=== PATIENT | female | born 1960 | race Caucasian/White ===

== ENCOUNTER 2018-09-12 09:59 | Inpatient (IN) | payer OTHER ==
[2018-09-12 10:07] VITALS: BMI 30.2
[2018-09-12 11:02] LABS: BASO % 0.3 % (0.0-2.0); EOS # 0.1 K/uL (0.0-0.7); EOS % 1.6 % (0.0-4.0); LYMPH # 1.6 K/uL (1.0-4.3); MEAN CELL VOLUME 87.3 fl (81.0-99.0); MEAN CORPUSCULAR HEMOGLOBIN 28.4 pg (27.0-31.0); MEAN CORPUSCULAR HGB CONC 32.5 g/dL (33.0-37.0); MONO # 0.4 K/uL (0.0-0.8); MONO % 5.1 % (0.0-10.0); NEUT # 5.1 K/uL (1.8-7.0); NRBC % 0.1 % (0.0-0.0); RBC 4.57 Mil/uL (3.80-5.20); RED CELL DISTRIBUTION WIDTH 13.5 % (11.5-14.5); WHITE BLOOD COUNT 7.1 K/uL (4.8-10.8)
[2018-09-12 11:15] LABS: ALB/GLOB RATIO 1.2 (1.0-2.1); ALBUMIN 3.8 g/dL (3.5-5.0); ALT/SGPT 20 U/L (9-52); AST/SGOT 25 U/L (14-36); BLOOD UREA NITROGEN 12 mg/dl (7-17); GFR NON-AFRICAN AMERICAN > 60
--- NOTE | 2018-09-12 11:18 | ED PDOC ---
HPI:STROKE - Time Time: 10:25 - Historian Historian: Patient, Family - Chief Complaint Chief Complaint: Numbness, Arm weakness, Leg weakness, other (Facial Swelling) - Onset Date: 09/11/18 Time: 08:00 Onset: Days (x1 ago) - Timing Timing: Persistent - Location Locate left: Face - Associated Symptoms Associated symptoms:: Numbness (to the left side of face, left arm and left leg), Pain (Neck Pain ) - Notes: Notes:: 57 y/o female with a PMHx of migraines presents to the ED for evaluation of left sided facial swelling associated with numbness to the left upper and lower extremities, onset yesterday morning. Patient reports facial swelling is additionally associated with a headache, dizziness, left sided neck pain and shortness of breath. Patient reports of blurry vision only through the left eye as well as slight photophobia and sensitivity to touch of the left face. Patient states headache is not similar to those of a migraine. Patient is concerned of swelling to the left side of her face, thus prompting today's visit. Patient reports of taking 2 tablets of Tylenol every 6 hours. Patient states her last dose of Tylenol for symptom relief was last night. Otherwise patient denies ear pain. Of note, patient is allergic to aspirin. When asked what happens when she takes aspirin, patient reports she vomits. PMD: None NIHSS Stroke Scale - Date/Time Evaluation Performed Date Performed: 09/12/18 Time Performed: 10:52 When Was NIHSS Performed: 24 hours post onset S/S - How Severe is the Stroke Level of Consciousness: 0=Alert LOC to Questions: 0=Both comments correct LOC to commands: 0=Obeys both correctly Best Gaze: 0=Normal Limb Ataxia: 0=Absent Best Language: 0=No aphasia Dysarthia: 0=Normal articulation Extinction & Inattention (Neglect): 0=Normal, no object rTPA Inclusion/Exclusion - Refusal of Treatment Patient Refused Treatment: No - Inclusion Criteria for Altepase Patient is 18 years or Older: Yes The Clinical Diagnosis of Ischemic Stroke That is Causing a Potentially Disabling Neurological Deficit: No Time of Onset is Well Established to be Less Than 270 Minute Before Treatment Would Begin: No Risk/Benefit Discussed With Patient/Family Member Present: Yes Past Medical History Reviewed: Historical Data, Nursing Documentation, Vital Signs Vital Signs: Last Vital Signs Temp 97.6 F 09/12/18 10:05 Pulse 75 09/12/18 10:05 Resp BP 132/80 09/12/18 10:05 Pulse Ox 97 09/12/18 10:05 - Medical History PMH: Migraine - Surgical History Surgical History: No Surg Hx - Family History Family History: States: Unknown Family Hx - Home Medications Home Medications: Ambulatory Orders Medication Instructions Recorded Amoxicillin/Clavulanate Pota 1 tab PO BID #14 tab 03/09/15 [Augmentin 875 mg-125 mg] Ciprofloxacin/Dexamethasone 4 drop OT BID #1 bottle 03/09/15 [Ciprodex 0.3%-0.1% 7.5 Ml] Oseltamivir Cap [Tamiflu] 75 mg PO BID #10 cap 11/11/16 - Allergies Allergies/Adverse Reactions: Allergies Allergy/AdvReac Type Severity Reaction Status Date / Time aspirin Allergy RASH Verified 11/11/16 09:53 Review of Systems ROS Statement: Except As Marked, All Systems Reviewed And Found Negative Constitutional: Positive for: Other (swelling to the left side of face). Negative for: Fever Eyes: Positive for: Pain, Vision Change (blurred vision to the left eye) Respiratory: Positive for: Shortness of Breath Musculoskeletal: Positive for: Neck Pain Neurological: Positive for: Numbness (to the left upper and lower extremities), Headache, Dizziness, Other (Photophobia and sensitivity to touch) Physical Exam - Reviewed Nursing Documentation Reviewed: Yes Vital Signs Reviewed: Yes - Physical Exam Appears: Positive for: Uncomfortable Head Exam: Positive for: ATRAUMATIC, NORMAL INSPECTION, NORMOCEPHALIC Skin: Positive for: Normal Color, Warm, Dry Eye Exam: Positive for: Normal appearance, EOMI, PERRL ENT: Positive for: Normal ENT Inspection Neck: Positive for: Supple, Pain On Movement Of Neck Cardiovascular/Chest: Positive for: Regular Rate, Rhythm. Negative for: Murmur Respiratory: Positive for: Normal Breath Sounds. Negative for: Respiratory Distress Gastrointestinal/Abdominal: Positive for: Normal Exam, Soft. Negative for: Tenderness Back: Positive for: Normal Inspection. Negative for: L CVA Tenderness, R CVA Tenderness, Vertebral Tenderness Extremity: Positive for: Normal ROM, Other (Strength: Left Side-4/5, Right Side- 5/5). Negative for: Pedal Edema, Deformity, Swelling Neurologic/Psych: Positive for: Alert, blogs manager II-XII (intact), Oriented (x3), Facial Droop (slight left sided). Negative for: Aphasia - Laboratory Results Result Diagrams: 09/12/18 10:50 09/12/18 10:50 - ECG O2 Sat by Pulse Oximetry: 97 (RA) Pulse Ox Interpretation: Normal Medical Decision Making Medical Decision Making: Time: 10:41 Plan: -CT Head w/o Contrast -EKG -CMP -Magnesium Stat -Phosphorous Stat -ED Urine Dipstick -CBC w differential - Erythrocyte sedimentation rate -Glucose POC -Tylenol 650mg PO -IV Fluid Time: 1127 CT HEAD RESULTS FINDINGS: HEMORRHAGE: No intracranial hemorrhage. BRAIN: Normal mejía-white matter differentiation and density are appreciated throughout the cerebrum and cerebellum with the brainstem appearing unremarkable as well. There is no mass effect. There is no suspicious extra-axial fluid collection and the midline brain anatomy appears diffusely unremarkable. VENTRICLES: Unremarkable. No hydrocephalus. CALVARIUM: Unremarkable. PARANASAL SINUSES: Unremarkable as visualized. No significant inflammatory changes. MASTOID AIR CELLS: Unremarkable as visualized. No inflammatory changes. OTHER FINDINGS: None. IMPRESSION: Unremarkable noncontrast head CT. No significant interval change compared to prior head CT 03/09/2015. Scribe Attestation: Documented by Katia Feliz, acting as a scribe for Dr. Haylie Jorge Provider Scribe Attestation: All medical record entries made by the Scribe were at my direction and personally dictated by me. I have reviewed the chart and agree that the record accurately reflects my personal performance of the history, physical exam, medical decision making, and the department course for this patient. I have also personally directed, reviewed, and agree with the discharge instructions and disposition. Disposition - Clinical Impression Clinical Impression: Left-sided weakness - Patient ED Disposition Is Patient to be Admitted: Yes Doctor Will See Patient In The: Hospital - Disposition Disposition: Transfer of Care Disposition Time: 13:30 Condition: FAIR Forms: Method (Niuean) - Pt Status Changed To: Hospital Disposition Of: Inpatient - Admit Certification Admit to Inpatient:: After my assessment, the patient will require hospitalization for at least two midnights. This is because of the severity of symptoms shown, intensity of services needed, and/or the medical risk in this patient being treated as an outpatient. - POA Present On Arrival: None
--- NOTE | 2018-09-12 11:31 | CT ---
Date of service: 09/12/2018 PROCEDURE: CT HEAD WITHOUT CONTRAST. HISTORY: HOPPER w/ left sided weakness since yesterday morn COMPARISON: Noncontrast head CT 03/09/2015. TECHNIQUE: Axial computed tomography images were obtained through the head/brain without intravenous contrast. Radiation dose: Total exam DLP = 784.86 mGy-cm. This CT exam was performed using one or more of the following dose reduction techniques: Automated exposure control, adjustment of the mA and/or kV according to patient size, and/or use of iterative reconstruction technique. FINDINGS: HEMORRHAGE: No intracranial hemorrhage. BRAIN: Normal mejía-white matter differentiation and density are appreciated throughout the cerebrum and cerebellum with the brainstem appearing unremarkable as well. There is no mass effect. There is no suspicious extra-axial fluid collection and the midline brain anatomy appears diffusely unremarkable. VENTRICLES: Unremarkable. No hydrocephalus. CALVARIUM: Unremarkable. PARANASAL SINUSES: Unremarkable as visualized. No significant inflammatory changes. MASTOID AIR CELLS: Unremarkable as visualized. No inflammatory changes. OTHER FINDINGS: None. IMPRESSION: Unremarkable noncontrast head CT. No significant interval change compared to prior head CT 03/09/2015.
[2018-09-12] MEDS ORDERED: Pantoprazole 40 mg EC Tab PO SCH (14:30)
--- NOTE | 2018-09-12 15:06 | CP.PCM.HP ---
History of Present Illness - History of Present Illness History of Present Illness: 57 y/o F with a PMHx of Migraine and Rheumatoid Arthritis presented to ED c/o left orbital swelling, L sided facial numbness and tingling, and L body weakness that began yesterday morning and aggravated dramatically this morning after waking up. As per pt, left lower eyelid swelling was predominant this morning, was painful, progressively decreased in size, and associated with L eye blurry vision that resolved already. Pt also explains that she had constant bilateral headache that began on Thursday, is described as burning, diffuse, 8/10 predominantly, non-radiating to neck and partially alleviated by OTC Tylenol (2tabs every 6-8hrs, last dose last night). -Family, daugther and daughter in law, at bedside reports that they noticed pt was acting cautiously since Thursday afternoon when she was complaining of headache and was walking by supporting her hands on the jolly. -Pt denies fever, chills, recent trauma, hearing deficits, chest pain, SOB, dysarthria, LOC, seizures, abdominal pain, N/V/D or rash. PMD: None Allergies: Aspirin, gastric upset, nausea, vomiting and epigastric severe pain. Ibuprofen gives same symptoms but at lesser intense. Meds: OTC Tylenol only -PMHx: Rheumatoid arthritis (not treated, as per patient), Migraines (non-severe as per pt) -PSHx: L breast unspecified mass excision, BTL. -FHx: NC -SHx: Denies alcohol, tobacco or rec drugs. At ED: -->CBC, CMP, ESR, Magnessium and Phosphorus were unremarkable -->CT Head: unremarkable -->PO Tylenol given, pt reported improvement. Present on Admission - Present on Admission Any Indicators Present on Admission: No Review of Systems - Constitutional Constitutional: absent: Chills, Fever, Frequent Falls, Night Sweats - EENT Eyes: Blurred Vision. absent: Discharge, Loss of Vision Ears: absent: Decreased Hearing, Ear Discharge, Ear Pain Nose/Mouth/Throat: absent: Nasal Congestion, Nasal Discharge, Hoarsness, Odynophagia, Sore Throat, Neck Pain - Cardiovascular Cardiovascular: absent: Chest Pain, Leg Edema, Palpitations, Rapid Heart Rate - Respiratory Respiratory: absent: Cough, Dyspnea, Hemoptysis - Gastrointestinal Gastrointestinal: absent: Abdominal Pain, Diarrhea, Nausea, Vomiting - Genitourinary Genitourinary: absent: Difficulty Urinating, Dysuria, Flank Pain, Hematuria, Urinary Frequency - Neurological Neurological: Numbness (L face), Focal Weakness (L side of body, mild). absent: Confusion, Frequent Falls, Restless Legs - Psychiatric Psychiatric: absent: Anhedonia, Anxiety, Auditory Hallucinations Past Patient History - Past Social History Smoking Status: Never Smoked - NEUROLOGICAL Hx Migraine: Yes - PSYCHIATRIC Hx Substance Use: No - SURGICAL HISTORY Other/Comment: removal of cyst lt breast - ANESTHESIA Hx Anesthesia: Yes Hx Anesthesia Reactions: No Meds Allergies/Adverse Reactions: Allergies Allergy/AdvReac Type Severity Reaction Status Date / Time aspirin Allergy RASH Verified 11/11/16 09:53 Physical Exam - Constitutional Appears: No Acute Distress - Head Exam Head Exam: ATRAUMATIC, NORMAL INSPECTION - Eye Exam Eye Exam: EOMI, PERRL - ENT Exam ENT Exam: Mucous Membranes Moist - Neck Exam Neck exam: Positive for: Full Rom, Normal Inspection. Negative for: Meningismus - Respiratory Exam Respiratory Exam: NORMAL BREATHING PATTERN. absent: Rales, Rhonchi, Wheezes, Respiratory Distress - Cardiovascular Exam Cardiovascular Exam: REGULAR RHYTHM, +S1, +S2 - GI/Abdominal Exam GI & Abdominal Exam: Soft. absent: Distended, Firm, Guarding, Organomegaly, Tenderness - Extremities Exam Extremities exam: Positive for: normal inspection. Negative for: calf tenderness, pedal edema - Neurological Exam Neurological exam: Alert, Oriented x3 - Expanded Neurological Exam Expanded Patient oriented to: person, place, time Speech: Fluid Speech Cranial nerves: EOM's Intact: Normal, Facial Palsey w/Forehead Movement: Abnormal Left (mild L facial palsy), Facial Sensation: Normal, Gag Reflex: Normal, Nystagmus: Normal, Tongue Deviation: Normal Ataxia: Yes (mild on finger-nose test) Cerebellar Function: Finger to Nose: Abnormal Left (mild and slow), Heel to Lopez: Abnormal Left Neuro motor strength exam: Left Upper Extremity: 4, Right Upper Extremity: 5, Left Lower Extremity: 4, Right Lower Extremity: 5 Coma Scale Eye Opening: SPONTANEOUS Coma Scale Motor Response: OBEYS COMMANDS Coma Scale Verbal: Oriented Coma Scale Total: 15 - Psychiatric Exam Psychiatric exam: Normal Mood - Additional Findings Additional findings: Sensation to light touch decreased on L side of body when compared to R side. Results - Vital Signs Recent Vital Signs: Last Vital Signs Temp 97.9 F 09/12/18 14:24 Pulse 55 L 09/12/18 14:24 Resp 18 09/12/18 14:24 BP 134/70 09/12/18 14:24 Pulse Ox 99 09/12/18 14:24 - Labs Result Diagrams: 09/12/18 10:50 09/12/18 10:50 Labs: Laboratory Results - last 24 hr 09/12/18 09/12/18 09/12/18 10:50 10:50 11:01 WBC 7.1 RBC 4.57 Hgb 13.0 Hct 39.9 MCV 87.3 MCH 28.4 MCHC 32.5 L RDW 13.5 Plt Count 256 MPV 9.0 Neut % (Auto) 71.0 Lymph % (Auto) 22.0 Cameron % (Auto) 5.1 Eos % (Auto) 1.6 Baso % (Auto) 0.3 Neut # (Auto) 5.1 Lymph # (Auto) 1.6 Cameron # (Auto) 0.4 Eos # (Auto) 0.1 Baso # (Auto) 0.0 ESR 25 Sodium 142 Potassium 3.8 Chloride 106 Carbon Dioxide 28 Anion Gap 12 BUN 12 Creatinine 0.6 L Est GFR ( Amer) > 60 Est GFR (Non-Af Amer) > 60 POC Glucose (mg/dL) 98 Random Glucose 87 Calcium 9.0 Phosphorus 2.9 Magnesium 1.9 Total Bilirubin 0.3 AST 25 ALT 20 Alkaline Phosphatase 71 Total Protein 7.1 Albumin 3.8 Globulin 3.3 Albumin/Globulin Ratio 1.2 Assessment & Plan - Assessment and Plan (Free Text) Assessment: 57 y/o F with a PMHx of RA and migraines admitted for evaluation and management of L sided face and body weakness, suspicion for acute CVA. --Head CT: unremarkable. PLAN: >Left sided face and body weakness --Stable. Need to rule out acute CVA. --Neurology consult, Dr Berman --MRI Brain ordered --US Dopler of b/l carotids ordered. --CBC, CMP, TSH, lipid panel and HbA1c ordered. --Nurse swallow screen --Neuro checks Q2H, continuous monitoring coordinator --Due to allergy to Aspirin, Plavis PO daily initiated --Lipitor 10mg PO initiated --Heart Healthy diet. >Headache/Migraine --Hx of migraine. --PO Acetaminophen 325mg PRN for mild pain (1-3) --PO Acetaminophen 650mg PRN for moderate pain (4-7) --Notify MD if severe pain/headache >Prophylaxis --Lovenox 40mg SC daily Case discussed with Dr Lambert, Hospitalist prescriptionist. GTolentino
--- NOTE | 2018-09-12 16:37 | US ---
Date of service: 09/12/2018 PROCEDURE: Duplex ultrasound of the carotid and vertebral arteries. HISTORY: left facial weakness/numbness COMPARISON: None available. TECHNIQUE: Grayscale and duplex Doppler evaluation of the cervical carotid and vertebral arteries were performed. The common carotid, carotid bifurcations and cervical ICA and proximal ECA were evaluated. The vertebral arteries were evaluated for gross patency and direction. FINDINGS: RIGHT CAROTID ARTERIES: Common Carotid Artery: Normal. Maximal flow velocity of 72.4 cm/s. Carotid Bifurcation: Normal. Internal Carotid Artery:Normal. Maximal flow velocity of 80.6 cm/s. External Carotid Artery (proximal branches): Normal. Maximal flow velocity of 55.9 cm/s. ICA/CCA Ratio: 1.1 LEFT CAROTID ARTERIES: Common Carotid Artery: Normal. Maximal flow velocity of 57.5 cm/s. Carotid Bifurcation: Normal. Internal Carotid Artery:Normal. Maximal flow velocity of 84.3 cm/s. External Carotid Artery (proximal branches): Normal. Maximal flow velocity of 75.7 cm/s. ICA/CCA Ratio: 1.5 VERTEBRAL ARTERIES: Right Vertebral Artery: Patent. Antegrade flow. Left Vertebral Artery: Patent. Antegrade flow. OTHER FINDINGS: No atherosclerotic calcification present IMPRESSION: Normal Duplex Doppler of the cervical carotid and vertebral arteries.
[2018-09-12] MEDS ORDERED: Artificial Tears Opht Soln OU PRN (23:58)
[2018-09-13 05:49] LABS: BASO # 0.1 K/uL (0.0-0.2); BASO % 0.7 % (0.0-2.0); EOS # 0.2 K/uL (0.0-0.7); EOS % 2.3 % (0.0-4.0); HEMOGLOBIN 13.3 g/dL (12.0-16.0); LYMPH # 2.6 K/uL (1.0-4.3); LYMPH % 33.7 % (20.0-40.0); MEAN CELL VOLUME 85.4 fl (81.0-99.0); MEAN CORPUSCULAR HEMOGLOBIN 28.2 pg (27.0-31.0); MEAN CORPUSCULAR HGB CONC 33.1 g/dL (33.0-37.0); MONO # 0.4 K/uL (0.0-0.8); MONO % 5.6 % (0.0-10.0); NEUT # 4.5 K/uL (1.8-7.0); NEUT % 57.7 % (50.0-75.0); RBC 4.72 Mil/uL (3.80-5.20); RED CELL DISTRIBUTION WIDTH 13.9 % (11.5-14.5); WHITE BLOOD COUNT 7.9 K/uL (4.8-10.8)
[2018-09-13 05:54] LABS: BLOOD UREA NITROGEN 12 mg/dl (7-17); CALCIUM 8.7 mg/dL (8.4-10.2); GFR NON-AFRICAN AMERICAN > 60; HDL CHOLESTEROL 42 MG/DL (30-70)
[2018-09-13 06:04] LABS: LDL CHOLESTEROL 132 mg/dL (0-129)
[2018-09-13] MEDS ORDERED: Pantoprazole 40 mg EC Tab PO SCH (09:00)
[2018-09-13] MEDS ORDERED: Enoxaparin 40 mg Syringe SC SCH ×2 (09:00)
--- NOTE | 2018-09-13 11:24 | MRI ---
Date of service: 09/13/2018 PROCEDURE: MRI BRAIN WITHOUT CONTRAST HISTORY: left sided weakness COMPARISON: Noncontrast head CT from 09/12/2018. TECHNIQUE: Multiplanar, multisequence MR images of the brain were obtained without intravenous contrast enhancement. FINDINGS: HEMORRHAGE: None DWI: No evidence of an acute or early subacute infarction. BRAIN PARENCHYMA: There are scattered T2/FLAIR hyperintense lesions in the subcortical and periventricular white matter. There is no mass, mass effect or abnormal extra-axial fluid collection. The midline sagittal structures are normal VENTRICLES: There is mild global parenchymal volume loss and proportionate enlargement of the ventricles and cortical sulci. CRANIUM: There is normal bone marrow signal pattern. ORBITS: Grossly unremarkable. PARANASAL SINUSES/MASTOIDS: Clear VASCULAR SYSTEM: There are normal signal voids in the larger intracranial arteries. OTHER FINDINGS: None. IMPRESSION: No acute intracranial abnormality. Scattered subcortical and periventricular white matter lesions are strictly nonspecific. The differential considerations include migraine headache effect, gliosis, Lyme disease, vasculitis, early chronic microangiopathic changes and demyelinating disease including multiple sclerosis. Clinical follow-up is advised. Mild global parenchymal volume loss.
--- NOTE | 2018-09-13 13:24 | CP.PCM.PN ---
Subjective - Date & Time of Evaluation Date of Evaluation: 09/13/18 Time of Evaluation: 11:40 - Subjective Subjective: 57 y/o seen at bedside. States she has been having again headaches and left periorbital pain. Afebrile. Denies CP, SOB, vomiting, dizziness or nausea. Still c/o diffuse generalized weakness but improved overnight. Objective - Vital Signs/Intake and Output Vital Signs (last 24 hours): Temp Pulse Resp BP Pulse Ox 98.2 F 59 L 18 112/69 97 09/13/18 11:48 09/13/18 11:48 09/13/18 11:48 09/13/18 11:48 09/13/18 11:48 - Medications Medications: Current Medications Acetaminophen (Tylenol 325mg Tab) 650 mg PO Q6 PRN PRN Reason: Pain, moderate (4-7) Last Admin: 09/13/18 10:13 Dose: 650 mg Acetaminophen (Tylenol 325mg Tab) 325 mg PO Q6 PRN PRN Reason: Pain, Mild (1-3) Artificial Tears (Artificial Tears) 2 drop OU Q6 PRN PRN Reason: Dry eyes Last Admin: 09/13/18 00:28 Dose: 2 drop Atorvastatin Calcium (Lipitor) 10 mg PO HS [facility] Last Admin: 09/12/18 21:00 Dose: 10 mg Clopidogrel Bisulfate (Plavix) 75 mg PO DAILY [facility] Last Admin: 09/13/18 08:54 Dose: 75 mg Docusate Sodium (Colace) 100 mg PO BID PRN PRN Reason: Constipation - Labs Labs: 09/13/18 04:30 09/13/18 04:30 - Constitutional Appears: Non-toxic - Eye Exam Eye Exam: EOMI, Periorbital swelling (inferior eyelid, no redness.), Periorbital tenderness (left), PERRL. absent: Conjunctival injection, Nystagmus - ENT Exam ENT Exam: Mucous Membranes Moist - Respiratory Exam Respiratory Exam: Clear to Ausculation Bilateral, NORMAL BREATHING PATTERN - Cardiovascular Exam Cardiovascular Exam: REGULAR RHYTHM, +S1, +S2. absent: Gallop - GI/Abdominal Exam GI & Abdominal Exam: Soft, Normal Bowel Sounds. absent: Tenderness - Neurological Exam Neurological Exam: Alert, Awake, CN II-XII Intact, Oriented x3, Reflexes Normal Neuro motor strength exam: Left Upper Extremity: 5, Right Upper Extremity: 5, Left Lower Extremity: 4, Right Lower Extremity: 5 - Psychiatric Exam Psychiatric exam: Normal Affect, Normal Mood - Skin Skin Exam: Normal Color, Warm Assessment and Plan - Assessment and Plan (Free Text) Assessment: 57 y/o F wit migraines admitted for unsteady gait and left side weakness Left sided face and body weakness -Migraines possible. R/O CVA -Weakness almost resolved. -Still questionable left leg very mild weakness noted on exam today. rest seems WNL -Neurology consult, Dr Berman f/u recs -MRI Brain: White matter changes: Differential could be migraines, microangiopathic changes or MS -US Dopler No significant stenosis -CBC, CMP, TSH, lipid panel and HbA1c ordered unremarkable -C/w Plavix and Lipitor 10mg PO for now -PT eval for unsteady gait -Awaiting for Neuro recs/clearance and PT recs/clearance Headache/Migraine -Could be reason of left side body weakness -Hx of migraine. -PO Acetaminophen 325mg PRN for mild pain (1-3) -PO Acetaminophen 650mg PRN for moderate pain (4-7) -Notify MD if severe pain/headache Prophylaxis -Lovenox 40mg SC daily
--- NOTE | 2018-09-13 14:57 | CARD ---
APPROVED REPORT Date of service: 09/12/2018 EKG Measurement Heart [id number] [id number] <Conclusion> Sinus bradycardia Otherwise normal ECG
--- NOTE | 2018-09-13 17:38 | CP.PCM.DIS ---
<Tay Tran - Last Filed: 09/13/18 18:01> Provider - Provider Date of Admission: 09/12/18 13:44 Attending physician: Harvinder Lambert MD Primary care physician: NOne Consults: 09/12/18 14:29 Neurology Consult Stat Comment: Consulting Provider: Toni Berman Consulting Physician: Toni Berman Reason for Consult: left sided weakness Time Spent in preparation of Discharge (in minutes): 35 Diagnosis - Discharge Diagnosis (1) Migraine Status: Acute Comment: Improved. Noncompliant with outpatient treament. Hospital Course - Lab Results Lab Results: Most Recent Lab Values WBC 7.9 K/uL (4.8-10.8) 09/13/18 04:30 RBC 4.72 Mil/uL (3.80-5.20) 09/13/18 04:30 Hgb 13.3 g/dL (12.0-16.0) 09/13/18 04:30 Hct 40.3 % (34.0-47.0) 09/13/18 04:30 MCV 85.4 fl (81.0-99.0) 09/13/18 04:30 MCH 28.2 pg (27.0-31.0) 09/13/18 04:30 MCHC 33.1 g/dL (33.0-37.0) 09/13/18 04:30 RDW 13.9 % (11.5-14.5) 09/13/18 04:30 Plt Count 261 K/uL (130-400) 09/13/18 04:30 MPV 9.0 fl (7.2-11.7) 09/13/18 04:30 Neut % (Auto) 57.7 % (50.0-75.0) 09/13/18 04:30 Lymph % (Auto) 33.7 % (20.0-40.0) 09/13/18 04:30 [place] % (Auto) 5.6 % (0.0-10.0) 09/13/18 04:30 Eos % (Auto) 2.3 % (0.0-4.0) 09/13/18 04:30 Baso % (Auto) 0.7 % (0.0-2.0) 09/13/18 04:30 Neut # (Auto) 4.5 K/uL (1.8-7.0) 09/13/18 04:30 Lymph # (Auto) 2.6 K/uL (1.0-4.3) 09/13/18 04:30 [place] # (Auto) 0.4 K/uL (0.0-0.8) 09/13/18 04:30 Eos # (Auto) 0.2 K/uL (0.0-0.7) 09/13/18 04:30 Baso # (Auto) 0.1 K/uL (0.0-0.2) 09/13/18 04:30 ESR 25 mm/hr (0-30) 09/12/18 10:50 Sodium 141 mmol/l (132-148) 09/13/18 04:30 Potassium 4.1 MMOL/L (3.6-5.0) 09/13/18 04:30 Chloride 105 mmol/L (98-107) 09/13/18 04:30 Carbon Dioxide 27 mmol/L (22-30) 09/13/18 04:30 Anion Gap 13 (10-20) 09/13/18 04:30 BUN 12 mg/dl (7-17) 09/13/18 04:30 Creatinine 0.7 mg/dl (0.7-1.2) 09/13/18 04:30 Est GFR ( Amer) > 60 09/13/18 04:30 Est GFR (Non-Af Amer) > 60 09/13/18 04:30 POC Glucose (mg/dL) 98 mg/dL (65-110) 09/12/18 11:01 Random Glucose 98 mg/dL (65-105) 09/13/18 04:30 Hemoglobin A1c 5.6 % (4.2-6.5) 09/13/18 04:30 Calcium 8.7 mg/dL (8.4-10.2) 09/13/18 04:30 Phosphorus 2.9 mg/dl (2.5-4.5) 09/12/18 10:50 Magnesium 1.9 MG/DL (1.6-2.3) 09/12/18 10:50 Total Bilirubin 0.3 mg/dl (0.2-1.3) 09/12/18 10:50 AST 25 U/L (14-36) 09/12/18 10:50 ALT 20 U/L (9-52) 09/12/18 10:50 Alkaline Phosphatase 71 U/L (38-126) 09/12/18 10:50 Total Protein 7.1 G/DL (6.3-8.2) 09/12/18 10:50 Albumin 3.8 g/dL (3.5-5.0) 09/12/18 10:50 Globulin 3.3 gm/dL (2.2-3.9) 09/12/18 10:50 Albumin/Globulin Ratio 1.2 (1.0-2.1) 09/12/18 10:50 Triglycerides 197 mg/DL (0-149) H 09/13/18 04:30 Cholesterol 196 mg/dL (0-199) 09/13/18 04:30 LDL Cholesterol Direct 132 mg/dL (0-129) H 09/13/18 04:30 HDL Cholesterol 42 MG/DL (30-70) 09/13/18 04:30 TSH 3rd Generation 2.67 mIU/ML (0.46-4.68) 09/13/18 04:30 - Hospital Course Hospital Course: 57 y/o with PMhx of migraines was admitted for headache, facial weakness and left side body weakness. CT head neg for stroke and CBC, CMP ESR WNL. Patient stayed in the hosp overnight awaiting for neuro eval and MRI, Carotid US results. Headaches improved with PRN tylenol. Left side weakness resolved today and patient was cleared by Neuro and PT to be DC home. Will receive Mg sulfate and Decadron 1 dose before DC today for migraines as per Neuro recs. Home meds: Elavil 10 HS 14 tabs Advised to F/U at [facility] within 1 week for close f/u and migraines evaluation Discharge Exam - Head Exam Head Exam: ATRAUMATIC, NORMAL INSPECTION Additional comments: Documented in progress note Discharge Plan - Discharge Medications Prescriptions: RX: Amitriptyline [Elavil] 10 mg PO HS #14 tab - Follow Up Plan Condition: STABLE Disposition: HOME/ ROUTINE Patient education suggested?: Yes Instructions: Migraine Headache (DC) Additional Instructions: F/U with [facility] at [address] within 1 week. Referrals: [facility] [place] [Outside] <Harvinder Lambert D - Last Filed: 09/13/18 19:01> Provider - Provider Date of Admission: 09/12/18 13:44 Attending physician: Harvinder Lambert MD Consults: 09/12/18 14:29 Neurology Consult Stat Comment: Consulting Provider: Toni Berman Consulting Physician: Toni Berman Reason for Consult: left sided weakness Hospital Course - Lab Results Lab Results: Most Recent Lab Values WBC 7.9 K/uL (4.8-10.8) 09/13/18 04:30 RBC 4.72 Mil/uL (3.80-5.20) 09/13/18 04:30 Hgb 13.3 g/dL (12.0-16.0) 09/13/18 04:30 Hct 40.3 % (34.0-47.0) 09/13/18 04:30 MCV 85.4 fl (81.0-99.0) 09/13/18 04:30 MCH 28.2 pg (27.0-31.0) 09/13/18 04:30 MCHC 33.1 g/dL (33.0-37.0) 09/13/18 04:30 RDW 13.9 % (11.5-14.5) 09/13/18 04:30 Plt Count 261 K/uL (130-400) 09/13/18 04:30 MPV 9.0 fl (7.2-11.7) 09/13/18 04:30 Neut % (Auto) 57.7 % (50.0-75.0) 09/13/18 04:30 Lymph % (Auto) 33.7 % (20.0-40.0) 09/13/18 04:30 [place] % (Auto) 5.6 % (0.0-10.0) 09/13/18 04:30 Eos % (Auto) 2.3 % (0.0-4.0) 09/13/18 04:30 Baso % (Auto) 0.7 % (0.0-2.0) 09/13/18 04:30 Neut # (Auto) 4.5 K/uL (1.8-7.0) 09/13/18 04:30 Lymph # (Auto) 2.6 K/uL (1.0-4.3) 09/13/18 04:30 [place] # (Auto) 0.4 K/uL (0.0-0.8) 09/13/18 04:30 Eos # (Auto) 0.2 K/uL (0.0-0.7) 09/13/18 04:30 Baso # (Auto) 0.1 K/uL (0.0-0.2) 09/13/18 04:30 ESR 25 mm/hr (0-30) 09/12/18 10:50 Sodium 141 mmol/l (132-148) 09/13/18 04:30 Potassium 4.1 MMOL/L (3.6-5.0) 09/13/18 04:30 Chloride 105 mmol/L (98-107) 09/13/18 04:30 Carbon Dioxide 27 mmol/L (22-30) 09/13/18 04:30 Anion Gap 13 (10-20) 09/13/18 04:30 BUN 12 mg/dl (7-17) 09/13/18 04:30 Creatinine 0.7 mg/dl (0.7-1.2) 09/13/18 04:30 Est GFR ( Amer) > 60 09/13/18 04:30 Est GFR (Non-Af Amer) > 60 09/13/18 04:30 POC Glucose (mg/dL) 98 mg/dL (65-110) 09/12/18 11:01 Random Glucose 98 mg/dL (65-105) 09/13/18 04:30 Hemoglobin A1c 5.6 % (4.2-6.5) 09/13/18 04:30 Calcium 8.7 mg/dL (8.4-10.2) 09/13/18 04:30 Phosphorus 2.9 mg/dl (2.5-4.5) 09/12/18 10:50 Magnesium 1.9 MG/DL (1.6-2.3) 09/12/18 10:50 Total Bilirubin 0.3 mg/dl (0.2-1.3) 09/12/18 10:50 AST 25 U/L (14-36) 09/12/18 10:50 ALT 20 U/L (9-52) 09/12/18 10:50 Alkaline Phosphatase 71 U/L (38-126) 09/12/18 10:50 Total Protein 7.1 G/DL (6.3-8.2) 09/12/18 10:50 Albumin 3.8 g/dL (3.5-5.0) 09/12/18 10:50 Globulin 3.3 gm/dL (2.2-3.9) 09/12/18 10:50 Albumin/Globulin Ratio 1.2 (1.0-2.1) 09/12/18 10:50 Triglycerides 197 mg/DL (0-149) H 09/13/18 04:30 Cholesterol 196 mg/dL (0-199) 09/13/18 04:30 LDL Cholesterol Direct 132 mg/dL (0-129) H 09/13/18 04:30 HDL Cholesterol 42 MG/DL (30-70) 09/13/18 04:30 TSH 3rd Generation 2.67 mIU/ML (0.46-4.68) 09/13/18 04:30 Attending/Attestation - Attestation I have personally seen and examined this patient.: Yes I have fully participated in the care of the patient.: Yes I have reviewed all pertinent clinical information, including history, physical exam and plan: Yes Notes (Text): 09/13/18 19:00 Patient seen and examined with resident. Case discussed and agreed with assessment. Patient discharged in stable condition.
[2018-09-13] MEDS ORDERED: Dexamethasone 10 MG in Sodium Chloride 0.9% 50 ML IVPB ONE (17:55)
[2018-09-13] MEDS ORDERED: Magnesium Sulfate 1 gm in D5W 1 GM/100 ML BAG IVPB ONE (17:57)
--- NOTE | 2018-09-13 18:01 | CP.PCM.CON ---
History of Present Illness - History of Present Illness History of Present Illness: Neurology Consultation Note: Mrs. Sutherland is a 57-year-old woman with a past medical history of RA and migraine headaches, who has had a headache since yesterday that was associated with nausea, photophobia, and pulsation to the right occipital and temporal region. This was followed by left facial swelling and left side weakness that has now improved. MRI of the brain did not show any acute findings. She continues to have a headache that she rates a 7/10 in severity. Review of Systems - Constitutional Constitutional: As Per HPI - EENT Eyes: As Per HPI Ears: absent: As Per HPI, Decreased Hearing, Ear Discharge, Ear Pain, Tinnitus, Abnormal Hearing, Disequilibrium, Dizziness, Other Nose/Mouth/Throat: absent: As Per HPI, Epistaxis, Nasal Congestion, Nasal Discharge, Nasal Obstruction, Nasal Trauma, Nose Pain, Post Nasal Drip, Sinus Pain, Sinus Pressure, Bleeding Gums, Change in Voice, Dental Pain, Dry Mouth, Dysphagia, Halitosis, Hoarsness, Lip Swelling, Mouth Lesions, Mouth Pain, Odynophagia, Sore Throat, Throat Swelling, Tongue Swelling, Facial Pain, Neck Pain, Neck Mass, Other - Cardiovascular Cardiovascular: absent: As Per HPI, Acrocyanosis, Chest Pain, Chest Pain at Rest, Chest Pain with Activity, Claudication, Diaphoresis, Dyspnea, Dyspnea on Exertion, Edema, Irregular Heart Rhythm, Pain Radiating to Arm/Neck/Jaw, Leg Edema, Leg Ulcers, Lightheadedness, Orthopnea, Palpitations, Paroxysmal Nocturnal Dyspnea, Pedal Edema, Radiating Pain, Rapid Heart Rate, Slow Heart Rate, Syncope, Other - Respiratory Respiratory: absent: As Per HPI, Cough, Dyspnea, Hemoptysis, Dyspnea on E xertion, Wheezing, Snoring, Stridor, Pain on Inspiration, Chest Congestion, Excessive Mucous Production, Change in Mucous Color, Pain with Coughing, Other - Gastrointestinal Gastrointestinal: absent: As Per HPI, Abdominal Pain, Belching, Bloating, Change in Bowel Habits, Change in Stool Character, Coffee Ground Emesis, Constipation, Cramping, Diarrhea, Dyspepsia, Dysphagia, Early Satiety, Excessive Flatus, Fecal Incontinence, Heartburn, Hematemesis, Hematochezia, Loose Stools, Melena, Nausea, Odynophagia, Temesmus, Vomiting, Other - Genitourinary Genitourinary: absent: As Per HPI, Change in Urinary Stream, Difficulty Urinating, Dysuria, Flank Pain, Hematuria, Pyuria, Nocturia, Urinary Incontinence, Urinary Frequency, Urinary Hesitance, Urinary Urgency, Voiding Freq/Small Amts, Freq UTI, Hx Renal/Bladder Calculi, Hx /Renal Surgery, Bladder Distension, Other - Menstruation Menstruation: absent: As Per HPI, Amenorrhea, Amenorrhea/ Control, Currently Menstual, Cycle <21 Days, Cycle >35 Days, Cycle Variable, Menses 1-7 Days, Menses >/= 8 Days, Menses Variable, Cycle > 4 Weeks Between, No Menses for 6 Months, Heavy Menses, Light Menses, Normal Menses, Spotting Between Cycles, S/P Hysterectomy, Menopausal, Post Menopausal, Premenarche, Abnormal Vaginal Bleeding, Dysmenorrhea, Other - Musculoskeletal Musculoskeletal: As Per HPI - Integumentary Integumentary: absent: As Per HPI, Acne, Alopecia, Bleeding Lesions, Change in Hair, Change in Nails, Change in Pigmentation, Changing Lesions, Dry Skin, Erythema, Furuncle, Hirsutism, Lesions, New Lesions, Non-Healing Lesions, Photosensitivity, Pruritus, Rash, Skin Pain, Skin Ulcer, Sores, Striae, Swelling, Unusual Bruising, Wounds, Jaundice, Other - Neurological Neurological: As Per HPI - Psychiatric Psychiatric: absent: As Per HPI, Abnormal Sleep Pattern, Anhedonia, Anxiety, Auditory Hallucinations, Behavioral Changes, Change in Appetite, Change in Libi do, Confusion, Depression, Difficulty Concentrating, Hallucinations, Homicidal Ideation, Hopelessness, Irritability, Memory Loss, Mood Swings, Panic Attacks, Paranoia, Suicidal Ideation, Visual Hallucinations, Tactile Hallucinations, Other - Endocrine Endocrine: absent: As Per HPI, Change in Body Appearance, Change in Libido, Cold Intolorance, Deepening of Voice, Excessive Sweating, Fatigue, Flushing, Heat Intolorance, Increase in Ring/Shoe/Hat Size, Palpitations, Polydipsia, Polyphagia, Polyuria, Other - Hematologic/Lymphatic Hematologic: absent: As Per HPI, Easy Bleeding, Easy Bruising, Lymphadenopathy, Other Past Patient History - Past Medical History & Family History Past Medical History?: No - Past Social History Smoking Status: Never Smoked - NEUROLOGICAL Hx Migraine: Yes - MUSCULOSKELETAL/RHEUMATOLOGICAL Hx Falls: No - PSYCHIATRIC Hx Substance Use: No - SURGICAL HISTORY Other/Comment: removal of cyst lt breast - ANESTHESIA Hx Anesthesia: Yes Hx Anesthesia Reactions: No Meds Home Medications: Home Medication List Medication Instructions Recorded Confirmed Type Acetaminophen [Tylenol 325mg tab] 650 mg PO Q6 PRN tab 09/13/18 Rx Amitriptyline [Elavil] 10 mg PO HS #14 tab 09/13/18 Rx Allergies/Adverse Reactions: Allergies Allergy/AdvReac Type Severity Reaction Status Date / Time aspirin Allergy RASH Verified 11/11/16 09:53 - Medications Medications: Current Medications Acetaminophen (Tylenol 325mg Tab) 650 mg PO Q6 PRN PRN Reason: Pain, moderate (4-7) Last Admin: 09/13/18 10:13 Dose: 650 mg Acetaminophen (Tylenol 325mg Tab) 325 mg PO Q6 PRN PRN Reason: Pain, Mild (1-3) Artificial Tears (Artificial Tears) 2 drop OU Q6 PRN PRN Reason: Dry eyes Last Admin: 09/13/18 00:28 Dose: 2 drop Atorvastatin Calcium (Lipitor) 10 mg PO HS [facility] Last Admin: 09/12/18 21:00 Dose: 10 mg Clopidogrel Bisulfate (Plavix) 75 mg PO DAILY [facility] Last Admin: 09/13/18 08:54 Dose: 75 mg Docusate Sodium (Colace) 100 mg PO BID PRN PRN Reason: Constipation Dexamethasone 10 mg/ Sodium (Chloride) 51 mls @ 102 mls/hr IVPB ONCE ONE Stop: 09/13/18 18:24 Physical Exam - Constitutional Appears: Well - Head Exam Head Exam: ATRAUMATIC, NORMAL INSPECTION, NORMOCEPHALIC - Eye Exam Eye Exam: EOMI, Normal appearance, PERRL Pupil Exam: NORMAL ACCOMODATION, PERRL - ENT Exam ENT Exam: Mucous Membranes Moist, Normal Exam - Neck Exam Neck exam: Positive for: Normal Inspection - Respiratory Exam Respiratory Exam: Clear to Auscultation Bilateral, NORMAL BREATHING PATTERN - Cardiovascular Exam Cardiovascular Exam: REGULAR RHYTHM, +S1, +S2 - GI/Abdominal Exam GI & Abdominal Exam: Normal Bowel Sounds, Soft. absent: Tenderness - Extremities Exam Extremities exam: Positive for: normal inspection - Back Exam Back exam: NORMAL INSPECTION - Neurological Exam Neurological exam: Alert, CN II-XII Intact, Normal Gait, Oriented x3, Reflexes Normal - Psychiatric Exam Psychiatric exam: Normal Affect, Normal Mood - Skin Skin Exam: Dry, Intact, Normal Color, Warm Results - Vital Signs Recent Vital Signs: Last Vital Signs Temp 98.2 F 09/13/18 15:36 Pulse 60 09/13/18 15:36 Resp 19 09/13/18 15:36 BP 118/67 09/13/18 15:36 Pulse Ox 97 09/13/18 15:36 - Labs Result Diagrams: 09/13/18 04:30 09/13/18 04:30 Labs: Laboratory Results - last 24 hr 09/13/18 09/13/18 09/13/18 04:30 04:30 04:30 WBC 7.9 RBC 4.72 Hgb 13.3 Hct 40.3 MCV 85.4 MCH 28.2 MCHC 33.1 RDW 13.9 Plt Count 261 MPV 9.0 Neut % (Auto) 57.7 Lymph % (Auto) 33.7 [place] % (Auto) 5.6 Eos % (Auto) 2.3 Baso % (Auto) 0.7 Neut # (Auto) 4.5 Lymph # (Auto) 2.6 [place] # (Auto) 0.4 Eos # (Auto) 0.2 Baso # (Auto) 0.1 Sodium 141 Potassium 4.1 Chloride 105 Carbon Dioxide 27 Anion Gap 13 BUN 12 Creatinine 0.7 Est GFR ( Amer) > 60 Est GFR (Non-Af Amer) > 60 Random Glucose 98 Hemoglobin A1c 5.6 Calcium 8.7 Triglycerides 197 H Cholesterol 196 LDL Cholesterol Direct 132 H HDL Cholesterol 42 TSH 3rd Generation 2.67 Assessment & Plan (1) Complicated migraine Assessment and Plan: I recommend treatment with 10 mg of decadron IV once and 1 gram of magnesium sulfate. If she improves, she can be discharged to follow up with outpatient neurology. Thank you for the consultation. Status: Acute
[2018-09-13 19:30] VITALS: BP 106/70; PULSE 70; RESP 20; TEMP 98.3; O2SAT 98
== END 2018-09-13 20:00 | disposition home or self-care (01) | DRG 54 ==
LOC: H.ER 09:59 → H.ERHOLD 13:44 → H.TEL 15:18
DX: G43.109 Migraine with aura, not intractable, without status migrainosus (principal); R29.810 Facial weakness; H02.845 Edema of left lower eyelid; M06.9 Rheumatoid arthritis, unspecified; M54.2 Cervicalgia; Z91.19 Patient's noncompliance with other medical treatment and regimen; Z88.6 Allergy status to analgesic agent